=== PATIENT | male | born 1965 | race Caucasian/White ===

== ENCOUNTER → 2019-05-30 15:39 | Outpatient (CLI) | payer OTHER, SELFPAY ==
--- NOTE | 2019-05-30 | DI.RAD.S_ITS ---
PROCEDURE: XR LUMBAR SPINE MIN 4V INDICATIONS: Joint Pain and Low Back Pain TECHNIQUE: 5 views of the lumbar spine were acquired. COMPARISON: None. FINDINGS: Bones: 5 nonrib-bearing vertebrae are present. There is mild retrolisthesis at L5 on S1 measuring approximately 3 mm. Minimal retrolisthesis also demonstrated at L4-L5. There is moderate loss of disc height at L5-S1 with mild endplate sclerosis and osteophytosis as well as vacuum disc phenomenon. There is minimal disc space narrowing also demonstrated elsewhere throughout the lumbar spine. There is mild facet arthropathy at L5-S1. No vertebral body compression fractures. No suspicious bony lesions. Soft tissues: Overlying bowel gas pattern is normal. No suspicious soft tissue calcifications. Oblique images: No pars defects. IMPRESSION: 1. Multilevel degenerative disc disease including moderate degeneration at L5-S1. 2. Mild facet arthropathy at L5-S1. 3. Mild retrolisthesis at L5-S1 and minimal retrolisthesis at L4-L5. Dictated by: Mando Lopes M.D. on 05/30/2019 at 16:21 Approved by: Mando Lopes M.D. on 05/30/2019 at 16:23
--- NOTE | 2019-05-30 | DI.RAD.S_ITS ---
PROCEDURE: XR FOOT RT MIN 3V INDICATIONS: Joint Pain and Low Back Pain TECHNIQUE: 3 views of the foot were acquired. COMPARISON: [facility], CR, XR FOOT LT MIN 3V, 05/30/2019, 16:19. FINDINGS: Bones: No fractures or dislocations. There is moderate narrowing of the 1st metatarsophalangeal joint with subchondral sclerosis and mild osteophytosis. No bony erosions. No suspicious bony lesions. Soft tissues: No tibiotalar joint effusion. Achilles tendon appears intact. No suspicious soft tissue calcifications. IMPRESSION: 1. Moderate osteoarthritic changes of the 1st metatarsophalangeal joint. Dictated by: Mando Lopes M.D. on 05/30/2019 at 16:07 Approved by: Mando Lopes M.D. on 05/30/2019 at 16:08
--- NOTE | 2019-05-30 | DI.RAD.S_ITS ---
PROCEDURE: XR FOOT LT MIN 3V INDICATIONS: Joint Pain and Low Back Pain TECHNIQUE: 3 views of the foot were acquired. COMPARISON: [facility], CR, XR FOOT RT MIN 3V, 05/30/2019, 16:17. FINDINGS: Bones: No fractures or dislocations. There is mild narrowing of the 1st metatarsophalangeal joint. No suspicious bony lesions. Soft tissues: No tibiotalar joint effusion. Achilles tendon appears intact. IMPRESSION: 1. Mild osteoarthritic changes at the 1st metatarsophalangeal joint. Dictated by: Mando Lopes M.D. on 05/30/2019 at 16:08 Approved by: Mando Lopes M.D. on 05/30/2019 at 16:11
--- NOTE | 2019-05-30 | DI.RAD.S_ITS ---
PROCEDURE: XR HAND RT MIN 3V INDICATIONS: Joint Pain and Low Back Pain TECHNIQUE: 3 views of the hand(s) acquired. COMPARISON: [facility], CR, XR HAND LT MIN 3V, 05/30/2019, 16:14. FINDINGS: Bones: No fractures or dislocations. The joint spaces appear preserved. No discrete bony erosions. Carpal bones are normally aligned. No suspicious bony lesions. Soft tissues: No suspicious soft tissue calcifications. IMPRESSION: 1. No acute bony abnormality or advanced arthritic changes. Dictated by: Mando Lopes M.D. on 05/30/2019 at 16:00 Approved by: Mando Lopes M.D. on 05/30/2019 at 16:05
--- NOTE | 2019-05-30 | DI.RAD.S_ITS ---
PROCEDURE: XR PELVIS 1-2V INDICATIONS: Joint Pain and Low Back Pain TECHNIQUE: Single view of the pelvis acquired. COMPARISON: None. FINDINGS: Bones: No fractures or dislocations. The hip joint spaces appear preserved. No suspicious bony lesions. Soft tissues: Visualized bowel gas pattern is normal. No suspicious soft tissue calcifications. IMPRESSION: 1. No acute bony abnormality. Dictated by: Mando Lopes M.D. on 05/30/2019 at 16:20 Approved by: Mando Lopes M.D. on 05/30/2019 at 16:20
--- NOTE | 2019-05-30 | DI.RAD.S_ITS ---
PROCEDURE: XR HAND LT MIN 3V INDICATIONS: Joint Pain and Low Back Pain TECHNIQUE: 3 views of the left and acquired. COMPARISON: [facility], CR, XR HAND RT MIN 3V, 05/30/2019, 16:12. FINDINGS: Bones: No fractures or dislocations. The joint spaces appear preserved. No bony erosions. Carpal bones are normally aligned. No suspicious bony lesions. Soft tissues: There is a small ossicle adjacent to the ulnar styloid which may represent sequelae of a prior avulsion injury. IMPRESSION: 1. No acute bony abnormality or advanced arthritic changes. Dictated by: Mando Lopes M.D. on 05/30/2019 at 16:06 Approved by: Mando Lopes M.D. on 05/30/2019 at 16:07
== END ==
PROVIDERS: PCP Family Medicine; Visit Provider Internal Medicine Rheumatology
DX: M54.5 Low back pain (principal); M25.542 Pain in joints of left hand; M25.541 Pain in joints of right hand; M25.572 Pain in left ankle and joints of left foot; M25.571 Pain in right ankle and joints of right foot; M51.36 Other intervertebral disc degeneration, lumbar region; M51.37 Other intervertebral disc degeneration, lumbosacral region; M47.817 Spondylosis without myelopathy or radiculopathy, lumbosacral region; M43.17 Spondylolisthesis, lumbosacral region
CPT/HCPCS: 72110; 72170; 73130; 73630

== ENCOUNTER 2020-07-20 05:58 | Emergency (ER) | payer OTHER, SELFPAY ==
[2020-07-20 06:05] VITALS: BP 174/108; PULSE 110; RESP 18; TEMP 36.4; O2SAT 98
--- NOTE | 2020-07-20 06:12 | ED_ITS ---
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 It began bothering him last evening and at this point feels like it is causing him to clear his throat and getting him a sense of fullness at his neck when he swallows. He has had no fevers, no chills, no significant weight loss, no orthopnea or dyspnea, no palpitations, no abdominal pain, no dysuria no diarrhea no constipation. He has no history of thyroid abnormalities or personal cancer. Related Data Previous Rx's Medication Instructions Recorded doxycycline hyclate 100 mg PO BID #10 cap 07/20/20 Allergies Allergy/AdvReac Type Severity Reaction Status Date / Time ibuprofen Allergy Verified 07/20/20 07:03 pain med AdvReac Nausea Uncoded 07/20/20 07:03 Review of Systems <Cleo Moon MD - Last Filed: 07/20/20 22:57> Review of Systems Narrative: Remainder of review of systems including constitutional, ENT, cardiovascular, respiratory, GI, , musculoskeletal, skin, neurologic and psychiatric systems reviewed and are unremarkable except as noted in HPI. Patient History <Cleo Moon MD - Last Filed: 07/20/20 22:57> Medical History Arthritis (Acute) Social History Smoking Status: Never smoker Exam <Cleo Moon MD - Last Filed: 07/20/20 22:57> Narrative Exam Narrative: General: Healthy appearing, in no acute distress. Able to give a complete and coherent history. Well-nourished well-developed HEENT: Moist mucous membranes, normal sclera with reactive pupils, Neck: Nontender slight fullness in the area of the sternal notch. Bedside ultrasound does not suggest fluid-filled sister abscess. Thyroid is not enlarged and no thyroid nodules are palpated on exam Respiratory: Lungs are clear to auscultation, no wheezing no rales no rhonchi. Full and symmetrical air movement Cardiac: Regular rate and rhythm no murmurs no bruits Abdomen: Soft nontender good bowel tones, no flank pain Skin: Warm and dry, no rashes Neurologic: Grossly neurologically intact with no obvious asymmetries or abnormalities Extremities: No trauma, well perfused Psych: Cooperative, appropriate insight and affect Initial Vital Signs Initial Vital Signs: Vital Signs Temperature 97.5 F L 07/20/20 06:05 Pulse Rate 110 H 07/20/20 06:05 Respiratory Rate 18 07/20/20 06:05 Blood Pressure 174/108 H 07/20/20 06:05 Pulse Oximetry 98 07/20/20 06:05 <Glenis Huerta DO - Last Filed: 07/20/20 09:27> Initial Vital Signs Initial Vital Signs: Vital Signs Temperature 97.5 F L 07/20/20 06:05 Pulse Rate 110 H 07/20/20 06:05 Respiratory Rate 18 07/20/20 06:05 Blood Pressure 174/108 H 07/20/20 06:05 Pulse Oximetry 98 07/20/20 06:05 Course <Cleo Moon MD - Last Filed: 07/20/20 22:57> Orders Ordered: ED Orders 07/20/20 06:30 Complete Blood Count AUTO DIFF Stat Comprehensive Metabolic Panel Stat 07/20/20 06:38 Thyroid Stimulating Hormone Stat 07/20/20 07:26 CT soft tissue neck w con Stat Vital Signs Vital signs: Vital Signs - 8 hr 07/20/20 06:05 07/20/20 07:44 07/20/20 08:45 Temperature 97.5 F L Pulse Rate 110 H 92 H 83 Respiratory Rate 18 16 16 Blood Pressure 174/108 H 148/95 H 153/93 H Pulse Oximetry 98 100 98 <Glenis Huerta DO - Last Filed: 07/20/20 09:27> Orders Ordered: ED Orders 07/20/20 06:30 Complete Blood Count AUTO DIFF Stat Comprehensive Metabolic Panel Stat 07/20/20 06:38 Thyroid Stimulating Hormone Stat 07/20/20 07:26 CT soft tissue neck w con Stat Reevaluation(s) Reevaluation #1: Patient signed out to myself. Labs reviewed and patient re- evaluated. Reviewed HPI with patient, CT results were reviewed. On physical exam patient has possibly some very mild swelling his sternal notch, very faint erythema and a a 3.5 cm patch, there is no fluctuance or induration appreciated. Patient's cardiac and respiratory exam are normal. No stridor, no hoarseness or voice changes. We did discuss that there is a possibility patient may have a very mild cellulitis I was suggest observation for 12-24 hours and if worsening or no improvement could try oral antibiotic. We also discussed possibility of esophageal irritation or abrasion or airway involvement although this seems less likely with patient's outer swelling and negative CT findings but that I would refer him to ENT for evaluation if his symptoms continue. Patient did note that he had a rash lower on his chest which he described as small pustules and redness about a month ago and by his description sounds suspiciously like folliculitis. Vital Signs Vital signs: Vital Signs - 8 hr 07/20/20 06:05 07/20/20 07:44 07/20/20 08:45 Temperature 97.5 F L Pulse Rate 110 H 92 H 83 Respiratory Rate 18 16 16 Blood Pressure 174/108 H 148/95 H 153/93 H Pulse Oximetry 98 100 98 MDM - Skin/Abscess/Foreign Bdy <Cleo Moon MD - Last Filed: 07/20/20 22:57> Medical Records Attestation: I reviewed the patient's medical records. Lab Data Result diagrams: 07/20/20 06:30 07/20/20 06:30 Labs: Lab Results 07/20/20 07/20/20 07/20/20 Range/Units 06:30 06:30 06:38 WBC 5.7 (4.5-11.0) X10^3/uL RBC 4.53 (4.5-5.9) X10^6/uL Hgb 14.5 (13.5-17.5) g/dL Hct 43.2 (41-53) % MCV 95.3 (80-100) fL MCH 32.0 (26-34) PG MCHC 33.6 (30-36) % RDW 13.9 (11.6-14.8) % Plt Count 248 (150-400) X10^3/uL Neut % (Auto) 65.8 (50-75) % Lymph % (Auto) 24.1 L (25-40) % Williamson % (Auto) 9.0 (3-14) % Eos % (Auto) 0.6 L (2-4) % Baso % (Auto) 0.5 (0-2) % Neut # (Auto) 3800 (7251-4880) /uL Lymph # (Auto) 1400 (8339-0752) /uL Williamson # (Auto) 500 (0-900) /uL Eos # (Auto) 0 (0-450) /uL Baso # (Auto) 0 (0-100) /uL Sodium 137 (137-145) mmol/L Potassium 3.9 (3.4-5.1) mmol/L Chloride 105 (98-107) mmol/L Carbon Dioxide 29 (22-32) mmol/L BUN 23 H (9-20) mg/dL Creatinine 0.76 (0.66-1.25) mg/dL Estimated GFR > 60.0 (>60) mL/min BUN/Creatinine Ratio 30.3 H (6-22) Glucose 109 H (70-100) mg/dL Calcium 9.3 (8.4-10.2) mg/dL Total Bilirubin 0.5 (0.2-1.3) mg/dL AST 59 (17-59) IU/L ALT 62 H (<50) IU/L Alkaline Phosphatase 81 (38-126) U/L Total Protein 7.1 (6.3-8.2) g/dL Albumin 4.2 (3.5-5.0) g/dL Globulin 2.9 (1.7-4.1) g/dL Albumin/Globulin Ratio 1.4 (1.0-2.8) TSH 1.40 (0.47-4.68) uIU/mL [facility] Narrative Medical decision making narrative: 54-year-old man presenting with 24 hours of fullness/mass developing in the sternal notch is causing him to clear his throat when he tox and feel as if there is something stuck in his esophagus. It is not impinging his airway or esophagus at this time. does not appear to be an abscess by bedside ultrasound. Labs and CT scan of the soft tissue neck have been ordered Care will be transferred to Dr. Glenis Huerta at change of shift <Glenis Huerta DO - Last Filed: 07/20/20 09:27> Lab Data Attestation: I reviewed the patient's lab results. Labs: Lab Results 07/20/20 07/20/20 07/20/20 Range/Units 06:30 06:30 06:38 WBC 5.7 (4.5-11.0) X10^3/uL RBC 4.53 (4.5-5.9) X10^6/uL Hgb 14.5 (13.5-17.5) g/dL Hct 43.2 (41-53) % MCV 95.3 (80-100) fL MCH 32.0 (26-34) PG MCHC 33.6 (30-36) % RDW 13.9 (11.6-14.8) % Plt Count 248 (150-400) X10^3/uL Neut % (Auto) 65.8 (50-75) % Lymph % (Auto) 24.1 L (25-40) % Williamson % (Auto) 9.0 (3-14) % Eos % (Auto) 0.6 L (2-4) % Baso % (Auto) 0.5 (0-2) % Neut # (Auto) 3800 (0167-7605) /uL Lymph # (Auto) 1400 (4799-2243) /uL Williamson # (Auto) 500 (0-900) /uL Eos # (Auto) 0 (0-450) /uL Baso # (Auto) 0 (0-100) /uL Sodium 137 (137-145) mmol/L Potassium 3.9 (3.4-5.1) mmol/L Chloride 105 (98-107) mmol/L Carbon Dioxide 29 (22-32) mmol/L BUN 23 H (9-20) mg/dL Creatinine 0.76 (0.66-1.25) mg/dL Estimated GFR > 60.0 (>60) mL/min BUN/Creatinine Ratio 30.3 H (6-22) Glucose 109 H (70-100) mg/dL Calcium 9.3 (8.4-10.2) mg/dL Total Bilirubin 0.5 (0.2-1.3) mg/dL AST 59 (17-59) IU/L ALT 62 H (<50) IU/L Alkaline Phosphatase 81 (38-126) U/L Total Protein 7.1 (6.3-8.2) g/dL Albumin 4.2 (3.5-5.0) g/dL Globulin 2.9 (1.7-4.1) g/dL Albumin/Globulin Ratio 1.4 (1.0-2.8) TSH 1.40 (0.47-4.68) uIU/mL Imaging Data CT soft tissue neck: Radiologist's Impression: [address] [address] [address] Scan Report Signed Patient: Edwar Cuellar [facility]#: [id number] : 1965Acct:[id number] Age/Sex: 54 / MDate of Service: 07/20/20 Loc: ED Accession Number: [id number] Procedure: CT soft tissue neck w con Ordering Provider: Cleo Moon MD PROCEDURE: CT SOFT TISSUE NECK W CON INDICATIONS: mass at sternal notch TECHNIQUE: After the administration of intravenous contrast, 3.0 mm axial sections acquired from the sella to the aortic arch. Additional oblique axial 3.0 mm sections acquired through the pharynx. 3 mm thick coronal and sagittal reformats were generated. For radiation dose reduction, the following was used: automated exposure control. COMPARISON: None. FINDINGS: Image quality: Excellent. Lymph nodes: No enlarged lymph nodes seen throughout the neck. Vessels: Visualized vasculature appears patent. Neck spaces: The oropharynx, nasopharynx, and pharynx demonstrate no mucosal lesions. The vocal cords, false vocal cords, pyriform sinuses, epiglottis, vallecula, and tongue base all appear normal. Extramucosal spaces appear unremarkable. Glands: The parotid and submandibular glands appear normal. Thyroid gland is normal. Miscellaneous: Visualized brain and orbits appear normal. Lung apices appear clear. Superficial soft tissues appear normal. Bones: No suspicious bony lesions. Spine degenerative disc disease and facet arthropathy. Visualized sinuses and mastoids appear unremarkable. IMPRESSION: 1. No abnormal mass identified. 2. No lymphadenopathy based on size criteria. 3. No mucosal-based masses. Dictated by: Deepthi Fitzpatrick MD, PhD on 07/20/2020 at 7:58 Approved by: Deepthi Fitzpatrick MD, PhD on 07/20/2020 at 8:01 Discharge Plan Departure Patient Disposition: Home Clinical Impression: Swelling of throat Discharge Date/Time: 07/20/20 08:45 Instructions: DI for Cellulitis -- Adult Activity Restrictions/Additional Instructions: Follow-up with ENT if your symptoms are not resolving, referral is given below with contact information. You may possibly have a mild cellulitis the skin, if you are not noticing any improvement in the next 12-24 hours I would suggest starting antibiotics to see if this resolves your skin changes. Return to the ER for fevers greater than 100.4 F, inability to swallow liquids or solid food, high-pitched wheezing or stridor, swelling of the tongue, posterior oropharynx, lips or face, rapidly spreading rash blister or other skin changes, lightheadedness, passing out, persistent vomiting or other new or concerning symptoms Prescriptions: New doxycycline hyclate 100 mg capsule 100 mg PO BID Qty: 10 RF: 0 Referrals: Jarret Mckeon MD [Primary Care Provider] - Ludwin Garnett MD [Physician] - ED Sign-out <Cleo Moon MD - Last Filed: 07/20/20 22:57> Cosign ED Attending Cosignature Attestation: I was immediately available in the department for consultation throughout this patient's visit. I agree with documentation as above. Cleo Moon MD
--- NOTE | 2020-07-20 06:41 | PC.NURSE ---
c/o difficulty swallowing. sore throat. soft tissue swelling in his neck. noticed it yesterday.
[2020-07-20 06:46] LABS: Add Manual Diff / Slide Review NO; Basophils Absolute Auto 0 /uL (0-100); Basophils Percent Auto 0.5 % (0-2); Eosinophils Absolute Auto 0 /uL (0-450); Eosinophils Percent Auto 0.6 % (2-4); Hematocrit 43.2 % (41-53); Hemoglobin 14.5 g/dL (13.5-17.5); Lymphocytes Absolute Auto 1400 /uL (1100-4500); Lymphocytes Percent Auto 24.1 % (25-40); Mean Corpuscular HGB Conc 33.6 % (30-36); Mean Corpuscular Volume 95.3 fL (80-100); Monocytes Absolute Auto 500 /uL (0-900); Neutrophils Absolute Auto 3800 /uL (1500-7000); Neutrophils Percent Auto 65.8 % (50-75); Platelet Count 248 X10^3/uL (150-400); Red Blood Cell Count 4.53 X10^6/uL (4.5-5.9); Red Cell Distribution Width 13.9 % (11.6-14.8); White Blood Cell Count 5.7 X10^3/uL (4.5-11.0)
[2020-07-20 06:48] LABS: Alanine Aminotransferase 62 IU/L (<50); Albumin 4.2 g/dL (3.5-5.0); Albumin Globulin Ratio 1.4 (1.0-2.8); Alkaline Phosphatase 81 U/L (38-126); Aspartate Aminotransferase 59 IU/L (17-59); BUN Creatinine Ratio 30.3 (6-22); Bilirubin Total 0.5 mg/dL (0.2-1.3); Blood Urea Nitrogen 23 mg/dL (9-20); Calcium 9.3 mg/dL (8.4-10.2); Carbon Dioxide 29 mmol/L (22-32); Chloride 105 mmol/L (98-107); Estimated Glomerular Filt Rate > 60.0 mL/min (>60); Globulin 2.9 g/dL (1.7-4.1); Glucose 109 mg/dL (70-100); HEMOLYSIS 34 (0-50); Potassium 3.9 mmol/L (3.4-5.1); Sodium 137 mmol/L (137-145); Total Protein 7.1 g/dL (6.3-8.2)
--- NOTE | 2020-07-20 07:26 | DI.CT.S_ITS ---
PROCEDURE: CT SOFT TISSUE NECK W CON INDICATIONS: mass at sternal notch TECHNIQUE: After the administration of intravenous contrast, 3.0 mm axial sections acquired from the sella to the aortic arch. Additional oblique axial 3.0 mm sections acquired through the pharynx. 3 mm thick coronal and sagittal reformats were generated. For radiation dose reduction, the following was used: automated exposure control. COMPARISON: None. FINDINGS: Image quality: Excellent. Lymph nodes: No enlarged lymph nodes seen throughout the neck. Vessels: Visualized vasculature appears patent. Neck spaces: The oropharynx, nasopharynx, and pharynx demonstrate no mucosal lesions. The vocal cords, false vocal cords, pyriform sinuses, epiglottis, vallecula, and tongue base all appear normal. Extramucosal spaces appear unremarkable. Glands: The parotid and submandibular glands appear normal. Thyroid gland is normal. Miscellaneous: Visualized brain and orbits appear normal. Lung apices appear clear. Superficial soft tissues appear normal. Bones: No suspicious bony lesions. Spine degenerative disc disease and facet arthropathy. Visualized sinuses and mastoids appear unremarkable. IMPRESSION: 1. No abnormal mass identified. 2. No lymphadenopathy based on size criteria. 3. No mucosal-based masses. Dictated by: Deepthi Fitzpatrick MD, PhD on 07/20/2020 at 7:58 Approved by: Deepthi Fitzpatrick MD, PhD on 07/20/2020 at 8:01
[2020-07-20 07:44] VITALS: BP 148/95; PULSE 92; RESP 16; O2SAT 100
[2020-07-20 08:45] VITALS: BP 153/93; PULSE 83; RESP 16; O2SAT 98
== END 2020-07-20 08:45 | disposition home or self-care (01) ==
PROVIDERS: Emergency Medicine; Emergency Provider Emergency Medicine; PCP Family Medicine
DX: J39.2 Other diseases of pharynx (principal); M19.90 Unspecified osteoarthritis, unspecified site
CPT/HCPCS: 36415; 70491; 80053; 84443; 85025; 99284; Q9967

== ENCOUNTER → 2021-05-28 14:29 | Outpatient (ROUT) | payer OTHER, SELFPAY ==
[2021-05-28 15:35] LABS: COVID19 -Nasal RAPID Negative (Negative)
== END ==
PROVIDERS: PCP Family Medicine; Visit Provider Physician Assistant
DX: Z20.822 Contact with and (suspected) exposure to COVID-19 (principal); R05 Cough
CPT/HCPCS: 87635